=== PATIENT | female | born 1965 | race Caucasian/White ===

== ENCOUNTER 2016-11-15 22:14 | Emergency (ER) | payer SELFPAY ==
[~2016-11-15] VITALS: Ht 165.1 cm; Wt 93.1 kg
[2016-11-15 22:20] VITALS: BP 183/105; PULSE 87; RESP 12; TEMP 98; O2SAT 98
--- NOTE | 2016-11-15 22:49 | PD ---
HPI Chief Complaint: Musculoskeletal Complaint Time Seen by Provider: 10:35 Travel History International Travel<30 days: No Contact w/Intl Traveler<30days: No Traveled to known affect area: No History of Present Illness HPI 51-year-old female presents to the emergency department for evaluation of left lower extremity pain and swelling. She reports the swelling and pain have been present for approximately one month but had significantly worsened over the last few days. She denies injury or trauma to the extremity. She denies any previous blood clot, recent surgery, immobilization, hormone therapy. She describes the pain as aching/throbbing, worse with dorsiflexion, and unrelieved by elevation of the leg. She denies any other medical complaint. COUNT INCLUDES THE [facility] Past Medical History Depression: Yes (TREATED YEARS AGO IN [facility]) Diminished Hearing: No Musculoskeletal: Yes (HERNIATED L4/L5) Tetanus Vaccination: Unknown Influenza Vaccination: No ?: Not Para: 1 Miscarriage: 1 Ovarian Cysts: Yes Past Surgical History Cholecystectomy: Yes Thoracic Surgery: Yes Social History Alcohol Use: No Tobacco Use: Yes (/ PPD) Substance Use: No (denies) Allergies-Medications (Allergen,Severity, Reaction): Coded Allergies: No Known Allergies (Verified , 04/05/16) Reported Meds & Prescriptions Reported Meds & Active Scripts Active No Active Prescriptions or Reported Medications Review of Systems Except as stated in HPI: all other systems reviewed are Neg Physical Exam Narrative GENERAL: [-Alert, well-nourished female in no acute distress] SKIN: Focused skin assessment warm/dry. No wounds, rashes or cellulitis. HEAD: Atraumatic. Normocephalic. EYES: Pupils equal and round. No scleral icterus. No injection or drainage. NECK: Trachea midline. No JVD. CARDIOVASCULAR: Regular rate and rhythm. No murmur appreciated. RESPIRATORY: No accessory muscle use. Clear to auscultation. Breath sounds equal bilaterally. GASTROINTESTINAL: Abdomen soft, non-tender, nondistended. Hepatic and splenic margins not palpable. MUSCULOSKELETAL: No obvious deformities. No clubbing. No cyanosis. Left lower extremity swelling from the calf extending to the ankle and foot. Tenderness across the posterior portion of the calf and posterior knee. Positive Homans sign. 2+ distal pulses present. NEUROLOGICAL: Awake and alert. No obvious cranial nerve deficits. Motor grossly within normal limits. Normal speech. PSYCHIATRIC: Appropriate mood and affect; insight and judgment normal. Data Data Last Documented VS Vital Signs Date Time Temp Pulse Resp B/P Pulse Ox O2 Delivery O2 Flow Rate FiO2 11/15/16 22:20 98.0 87 12 183/105 98 MDM Medical Decision Making Medical Screen Exam Complete: Yes Emergency Medical Condition: Yes Differential Diagnosis DVT, peripheral edema, unspecified leg pain Narrative Course 51-year-old female presents to the emergency department for evaluation of left lower extremity pain and swelling for 1 month. She reports the pain and swelling have increased in severity of the last several days prompting her visit today. She denies any significant past medical history. Not currently on any medications. Has no prior history of DVT. No evidence of trauma or infection. On exam the left lower extremity is mildly swollen she is tender in the posterior aspect of the calf and posterior knee. She has a positive Homans sign. Doppler ultrasound of left lower extremity relative DVT pending. Attending Dr. Dunbar will follow patient at this time. Scripts No Active Prescriptions or Reported Meds Naomi Love November 15, 2016 22:49
--- NOTE | 2016-11-15 23:23 | RADHPO ---
EXAM DATE/TIME: 11/15/2016 23:09 [facility] COMPARISON: No previous studies available for comparison. INDICATIONS : Left leg pain. MEDICAL HISTORY : Left leg pain. SURGICAL HISTORY : Cholecystectomy. ENCOUNTER: Initial ACUITY: 1 month PAIN SCORE: 5/10 LOCATION: Left leg. TECHNIQUE: Venous ultrasound of the leg was performed from the inguinal ligament to the proximal calf. Real-jaya e, color Doppler and spectral tracing, compression and augmentation techniques were used. FINDINGS: There is normal compressibility of the deep venous system from the inguinal region to the proximal ca lf. No echogenic clot is seen in the lumen of the common femoral, femoral, popliteal, and posterior tibial veins. There is a normal response of the venous system to proximal and distal augmentation an d respiration. CONCLUSION: Normal examination. Christopher Wang MD on November 15, 2016 at 23:21 Board Certified Radiologist. This report was verified electronically.
[2016-11-15 23:36] LABS: BASOPHIL % 0.3 % (0.0-2.0); EOSINOPHIL # 0.2 TH/MM3 (0-0.4); EOSINOPHIL % 1.5 % (0.0-4.0); HEMATOCRIT 36.8 % (35.0-46.0); HEMO FLAGS DIFF FINAL; LYMPHOCYTE # 2.4 TH/MM3 (1.0-4.8); MEAN CELL VOLUME 83.9 FL (80.0-100.0); MEAN CORPUSCULAR HEMOGLOBIN 27.9 PG (27.0-34.0); MEAN CORPUSCULAR HGB CONC 33.2 % (32.0-36.0); MONO % 5.8 % (0.0-8.0); NEUT % 74.4 % (16.0-70.0); PLATELET COUNT 408 TH/MM3 (150-450); RED BLOOD COUNT 4.39 MIL/MM3 (4.00-5.30); WHITE BLOOD COUNT 13.4 TH/MM3 (4.0-11.0)
--- NOTE | 2016-11-15 23:43 | PD ---
Physical Exam Date Seen by Provider: November 15, 2016 Time Seen by Provider: 23:39 Narrative This 51-year-old female has been having some pain in the back of her left leg for several weeks. It seems to be getting more severe. She feels like is a lump behind her left knee though it is not there all the time. The pain does keep her awake at times. She is taking ibuprofen without much response. There is no history of trauma. An ultrasound has been ordered and has been read as negative. White count is 13,000 with a normal differential Data Data Last Documented VS Vital Signs Date Time Temp Pulse Resp B/P Pulse Ox O2 Delivery O2 Flow Rate FiO2 11/15/16 22:20 98.0 87 12 183/105 98 Orders Us Leg Venous Doppler (11/15/16 ) Complete Blood Count With Diff (11/15/16 23:06) Basic Metabolic Panel (Bmp) (11/15/16 23:06) Labs Laboratory Tests Test 11/15/16 23:25 White Blood Count 13.4 TH/MM3 Red Blood Count 4.39 MIL/MM3 Hemoglobin 12.2 GM/DL Hematocrit 36.8 % Mean Corpuscular Volume 83.9 FL Mean Corpuscular Hemoglobin 27.9 PG Mean Corpuscular Hemoglobin 33.2 % Concent Red Cell Distribution Width 13.0 % Platelet Count 408 TH/MM3 Mean Platelet Volume 8.1 FL Neutrophils (%) (Auto) 74.4 % Lymphocytes (%) (Auto) 18.0 % Monocytes (%) (Auto) 5.8 % Eosinophils (%) (Auto) 1.5 % Basophils (%) (Auto) 0.3 % Neutrophils # (Auto) 10.0 TH/MM3 Lymphocytes # (Auto) 2.4 TH/MM3 Monocytes # (Auto) 0.8 TH/MM3 Eosinophils # (Auto) 0.2 TH/MM3 Basophils # (Auto) 0.0 TH/MM3 CBC Comment DIFF FINAL Differential Comment Sodium Level 140 MEQ/L Potassium Level 3.5 MEQ/L Chloride Level 106 MEQ/L Carbon Dioxide Level 27.9 MEQ/L Anion Gap 6 MEQ/L Blood Urea Nitrogen 10 MG/DL Creatinine 0.55 MG/DL Estimat Glomerular Filtration 117 ML/MIN Rate Random Glucose 94 MG/DL Calcium Level 8.8 MG/DL [facility] Medical Record Reviewed: Yes Supervised Visit with NIKOLAI: No Differential Diagnosis Differential includes DVT, arthritis, Shah cyst Narrative Course Ultrasound is negative for DVT and a Shah cyst is not diagnosed. Patient does say that she feels a lump behind her knee which seems to come and go I recommended that she follow up with her Shah cyst. I will prescribe a short burst of steroids as the ibuprofen has not been helping Diagnosis Primary Impression: Edema of left foot Scripts Methylprednisolone Dosepak (Medrol Dosepak)4 Mg Dspk4 Mg PO DIRECTED #1 DSPK Ref 0 Per Pharmacist direction Prov:Alfred Miranda MD 11/15/16 Disposition: DISCHARGE HOME Condition: Stable Alfred Miranda MD November 15, 2016 23:43
[2016-11-15 23:45] LABS: POTASSIUM 3.5 MEQ/L (3.5-5.1)
[2016-11-15 23:50] LABS: BICARBONATE 27.9 MEQ/L (21.0-32.0)
[2016-11-15] MEDS ORDERED: MEDR4PAK PO (23:57)
[2016-11-16] MEDS ORDERED: predniSONE 20 MG TAB PO ONE
[2016-11-16 00:13] VITALS: BP 165/98
== END 2016-11-16 00:14 | disposition home or self-care (01) ==
LOC: PHEFT 22:14
DX: R60.9 Edema, unspecified (principal); F32.9 Major depressive disorder, single episode, unspecified; F17.200 Nicotine dependence, unspecified, uncomplicated
CPT/HCPCS: 80048; 85025; 93971; 99284; J7512

== ENCOUNTER 2017-03-27 17:13 | Emergency (ER) | payer SELFPAY ==
[~2017-03-27 17:13] MED LIST: MEDR4PAK PO
[2017-03-27 17:20] VITALS: BP 166/97; PULSE 86; RESP 20; TEMP 93.3; TEMP 98.3; O2SAT 99
[2017-03-27] MEDS ORDERED: SODIUM CHLORIDE 0.9% FLUSH 10 ML FLUSH IVF PRN (17:45)
--- NOTE | 2017-03-27 17:59 | PD ---
HPI Chief Complaint: Musculoskeletal Complaint Time Seen by Provider: 17:34 Travel History International Travel<30 days: No Contact w/Intl Traveler<30days: No Traveled to known affect area: No History of Present Illness HPI 52-year-old female presents to the emergency room for evaluation of generalized weakness and myalgias for the past several months. Myalgias are in upper and lower extremities and worse after long periods of rest. Patient states when she wakes up in the morning she often cries because it is difficult to get out of bed. She has been "eating ibuprofen like candy." She also has left leg and posterior knee pain that started 7 months ago but has been increasingly worsening over the past month. No chronic medical conditions or daily medications. Patient has not seen a primary care physician in many years. She denies any fever, chills, nausea, vomiting, recent illness, chest pain, shortness breath, palpitations, back pain, abdominal pain, recent travel, hematemesis, hematochezia. She has not had a period in several years. No family history of autoimmune disease. Patient states she was in the emergency room several months ago and given prescription for prednisone which made her feel better for a few months. [facility] Past Medical History Depression: Yes (TREATED YEARS AGO IN [facility]) Diminished Hearing: No Musculoskeletal: Yes (HERNIATED L4/L5) ?: Not Para: 1 Miscarriage: 1 Ovarian Cysts: Yes Past Surgical History Cholecystectomy: Yes Thoracic Surgery: Yes Social History Alcohol Use: No Tobacco Use: Yes (1/2 PPD) Substance Use: No (denies) Allergies-Medications (Allergen,Severity, Reaction): Coded Allergies: No Known Allergies (Verified , 03/27/17) Reported Meds & Prescriptions Reported Meds & Active Scripts Active No Active Prescriptions or Reported Medications Review of Systems Except as stated in HPI: all other systems reviewed are Neg Physical Exam Narrative GENERAL: Well-nourished, well-developed female in no acute distress. Afebrile. Ambulatory. SKIN: Focused skin assessment warm/dry. No erythema or ecchymosis. HEAD: Normocephalic. EYES: No scleral icterus. No injection or drainage. NECK: Supple, trachea midline. No JVD or lymphadenopathy. CARDIOVASCULAR: Regular rate and rhythm without murmurs, gallops, or rubs. RESPIRATORY: Breath sounds equal bilaterally. No accessory muscle use. Scattered rhonchi bilaterally. MUSCULOSKELETAL: No cyanosis. There is a baseball-sized mass to the left posterior knee that is tender to palpation. Patient has full range motion of the knee. Bounding 2+ dorsalis pedis pulses bilaterally. No obvious effusion or edema. BACK: Nontender without obvious deformity. No CVA tenderness. Data Data Last Documented VS Vital Signs Date Time Temp Pulse Resp B/P (MAP) Pulse Ox O2 Delivery O2 Flow Rate FiO2 03/27/17 18:13 96 Room Air 03/27/17 17:20 93.3 86 20 166/97 (120) Orders Orders Complete Blood Count With Diff (03/27/17 17:45) Comprehensive Metabolic Panel (03/27/17 17:45) Ecg Monitoring (03/27/17 17:45) Iv Access Insert/Monitor (03/27/17 17:45) Oximetry (03/27/17 17:45) Sodium Chloride 0.9% Flush (Ns Flush) (03/27/17 17:45) Creatine Kinase (Cpk) (03/27/17 17:45) Thyroid Stimulating Hormone (03/27/17 17:45) Labs Laboratory Tests Test 03/27/17 18:00 White Blood Count 11.6 TH/MM3 Red Blood Count 4.39 MIL/MM3 Hemoglobin 11.9 GM/DL Hematocrit 35.8 % Mean Corpuscular Volume 81.7 FL Mean Corpuscular Hemoglobin 27.2 PG Mean Corpuscular Hemoglobin Concent 33.3 % Red Cell Distribution Width 12.3 % Platelet Count 491 TH/MM3 Mean Platelet Volume 8.1 FL Neutrophils (%) (Auto) 66.5 % Lymphocytes (%) (Auto) 22.3 % Monocytes (%) (Auto) 7.6 % Eosinophils (%) (Auto) 3.1 % Basophils (%) (Auto) 0.5 % Neutrophils # (Auto) 7.6 TH/MM3 Lymphocytes # (Auto) 2.6 TH/MM3 Monocytes # (Auto) 0.9 TH/MM3 Eosinophils # (Auto) 0.4 TH/MM3 Basophils # (Auto) 0.1 TH/MM3 CBC Comment DIFF FINAL Differential Comment Blood Urea Nitrogen 13 MG/DL Creatinine 0.45 MG/DL Random Glucose 89 MG/DL Total Protein 8.2 GM/DL Albumin 3.2 GM/DL Calcium Level 8.4 MG/DL Alkaline Phosphatase 114 U/L Aspartate Amino Transf (AST/SGOT) 12 U/L Alanine Aminotransferase (ALT/SGPT) 18 U/L Total Bilirubin 0.2 MG/DL Sodium Level 137 MEQ/L Potassium Level 3.4 MEQ/L Chloride Level 104 MEQ/L Carbon Dioxide Level 26.5 MEQ/L Anion Gap 7 MEQ/L Estimat Glomerular Filtration Rate 146 ML/MIN Total Creatine Kinase 84 U/L Thyroid Stimulating Hormone 3rd Gen 0.790 uIU/ML MDM Medical Decision Making Medical Screen Exam Complete: Yes Emergency Medical Condition: Yes Medical Record Reviewed: Yes Differential Diagnosis Hypothyroidism, anemia, autoimmune disease, myalgia, fibromyalgia Narrative Course 52-year-old female presents to the emergency room for evaluation of general weakness and myalgias for the past several months that has been worsening over the past several weeks. She is not on any medications. Myalgias are in upper and lower extremities and worse after long periods of rest. Patient denies any chest pain, shortness of breath, palpitations, recent illness. Vital signs stable. Physical exam unremarkable. Patient is well-appearing, ambulatory, in no acute distress. IV access established and basic labs obtained. CBC and CMP are essentially unremarkable. TSH is within normal limits. CK is not elevated. Patient may have chronic myalgias due to autoimmune disease or somatization. She was told to follow-up with her primary care physician for outpatient workup of autoimmune diseases symptoms persist or return for worsening symptoms. No indications for admission. Patient is stable for discharge. She understands and agrees to plan. Diagnosis Primary Impression: Myalgia Referrals: [facility] Additional Instructions: Rest and drink plenty of fluids. Follow-up with a primary care physician. Return to the emergency room for worsening symptoms. Scripts No Active Prescriptions or Reported Meds Disposition: DISCHARGE HOME Condition: Stable Lexi Patel Mar 27, 2017 17:59
[2017-03-27 18:13] VITALS: O2SAT 96
[2017-03-27 18:26] LABS: AUTOMATED NEUTROPHIL # 7.6 TH/MM3 (1.8-7.7); BASOPHIL # 0.1 TH/MM3 (0-0.2); BASOPHIL % 0.5 % (0.0-2.0); EOSINOPHIL # 0.4 TH/MM3 (0-0.4); EOSINOPHIL % 3.1 % (0.0-4.0); HEMATOCRIT 35.8 % (35.0-46.0); HEMO FLAGS DIFF FINAL; LYMPH % 22.3 % (9.0-44.0); LYMPHOCYTE # 2.6 TH/MM3 (1.0-4.8); MEAN CELL VOLUME 81.7 FL (80.0-100.0); MEAN CORPUSCULAR HEMOGLOBIN 27.2 PG (27.0-34.0); MEAN CORPUSCULAR HGB CONC 33.3 % (32.0-36.0); MONO % 7.6 % (0.0-8.0); NEUT % 66.5 % (16.0-70.0); PLATELET COUNT 491 TH/MM3 (150-450); RED BLOOD COUNT 4.39 MIL/MM3 (4.00-5.30); RED CELL DISTRIBUTION WIDTH 12.3 % (11.6-17.2); WHITE BLOOD COUNT 11.6 TH/MM3 (4.0-11.0)
[2017-03-27 18:34] LABS: CHLORIDE 104 MEQ/L (98-107); POTASSIUM 3.4 MEQ/L (3.5-5.1); SODIUM (NA) 137 MEQ/L (136-145)
[2017-03-27 18:37] LABS: ANION GAP 7 MEQ/L (5-15); BICARBONATE 26.5 MEQ/L (21.0-32.0)
[2017-03-27 18:38] LABS: BLOOD UREA NITROGEN 13 MG/DL (7-18)
[2017-03-27 18:40] LABS: ALT (GPT) 18 U/L (10-53); AST (GOT) 12 U/L (15-37)
[2017-03-27 18:41] LABS: GLOMERULAR FILTRATION RATE 146 ML/MIN (>89)
[2017-03-27 18:43] LABS: ALKALINE PHOSPHATASE 114 U/L (45-117)
[2017-03-27 18:48] LABS: TOTAL BILIRUBIN ADULT 0.2 MG/DL (0.2-1.0)
[2017-03-27 18:51] LABS: CREATINE KINASE 84 U/L (26-192)
[2017-03-27 19:33] VITALS: BP 142/104
== END 2017-03-27 19:37 | disposition home or self-care (01) ==
LOC: PHED 17:13
DX: M79.1 Myalgia (principal); R53.1 Weakness; M79.605 Pain in left leg; F17.200 Nicotine dependence, unspecified, uncomplicated; Z86.59 Personal history of other mental and behavioral disorders; Z87.39 Personal history of other diseases of the musculoskeletal system and connective tissue; Z87.42 Personal history of other diseases of the female genital tract
CPT/HCPCS: 80053; 82550; 84443; 85025; 99283

== ENCOUNTER 2017-04-06 23:53 | Emergency (ER) | payer SELFPAY ==
[~2017-04-06] VITALS: Ht 165.1 cm; Wt 92.8 kg
[2017-04-06 23:56] VITALS: BP 145/92; PULSE 99; RESP 14; TEMP 97.8; O2SAT 100
[2017-04-07] MEDS ORDERED: LISI10TA3 PO (00:03)
[2017-04-07] MEDS ORDERED: DICL25 PO (00:03)
--- NOTE | 2017-04-07 00:42 | PD ---
HPI Chief Complaint: Edema Time Seen by Provider: 00:39 Travel History International Travel<30 days: No Contact w/Intl Traveler<30days: No Traveled to known affect area: No History of Present Illness HPI The patient is a 52-year-old female that complains of right leg swelling for 2 days. She has not had any recent trauma to the leg, does not have a history of cancer of any type, has not been on any prolonged immobilization or long trips. She works as a waiter/waitress buffet standing up all day. She does not have a history of DVT in the past. She denies any fever, shortness of breath, syncopal or near syncopal spells, chest pain, tachycardia or hemoptysis. PFSH Past Medical History Arthritis: Yes Depression: Yes (TREATED YEARS AGO IN [facility]) Diminished Hearing: No Hypertension: Yes Musculoskeletal: Yes (HERNIATED L4/L5) Tetanus Vaccination: Unknown Influenza Vaccination: No ?: Not Menopausal: Yes : 1 Para: 1 Miscarriage: 1 Ovarian Cysts: Yes (OOFRECTOMY) Past Surgical History Cholecystectomy: Yes Hysterectomy: Yes (PARTIAL ) Thoracic Surgery: Yes Social History Alcohol Use: Yes (VERY RARE) Tobacco Use: Yes (1/2 PPD) Substance Use: No (denies) Allergies-Medications (Allergen,Severity, Reaction): Coded Allergies: No Known Allergies (Verified , 04/07/17) Reported Meds & Prescriptions Reported Meds & Active Scripts Active Reported Diclofenac Sodium DR (Diclofenac Sodium) 25 Mg Tabdr 25 Mg PO BID Lisinopril 10 Mg Tab 10 Mg PO DAILY Review of Systems Except as stated in HPI: all other systems reviewed are Neg Physical Exam Narrative GENERAL: The patient is alert, oriented 3 in slight apparent distress with her right lower leg discomfort. Her vital signs show blood pressure 145/92 and heart rate of 99 but otherwise normal. SKIN: Focused skin assessment warm/dry. HEAD: Atraumatic. Normocephalic. EYES: Pupils equal and round. No scleral icterus. No injection or drainage. ENT: No nasal bleeding or discharge. Mucous membranes pink and moist. NECK: Trachea midline. No JVD. CARDIOVASCULAR: Regular rate and rhythm. No murmur appreciated. RESPIRATORY: No accessory muscle use. Clear to auscultation. Breath sounds equal bilaterally. GASTROINTESTINAL: Abdomen soft, non-tender, nondistended. Hepatic and splenic margins not palpable. MUSCULOSKELETAL: No obvious deformities. No clubbing. No cyanosis. No edema. There is obvious swelling of the right lower leg as compared to the left and there is calf vein tenderness present. Homans sign is positive. There is some slight discomfort on the medial upper leg to direct palpation. NEUROLOGICAL: Awake and alert. No obvious cranial nerve deficits. Motor grossly within normal limits. Normal speech. PSYCHIATRIC: Appropriate mood and affect; insight and judgment normal. Data Data Last Documented VS Vital Signs Date Time Temp Pulse Resp B/P (MAP) Pulse Ox O2 Delivery O2 Flow Rate FiO2 04/07/17 00:11 91 14 99 Room Air 04/06/17 23:56 97.8 145/92 (109) Orders Orders Complete Blood Count With Diff (04/07/17 00:43) Comprehensive Metabolic Panel (04/07/17 00:43) Prothrombin Time / Inr (Pt) (04/07/17 00:43) Act Partial Throm Time (Ptt) (04/07/17 00:43) Urinalysis - C+S If Indicated (04/07/17 00:43) Us Leg Venous Doppler (04/07/17 00:43) Urine Culture (04/07/17 00:55) Labs Laboratory Tests Test 04/07/17 00:55 04/07/17 01:05 Urine Collection Type VOIDED Urine Color STRAW Urine Turbidity CLEAR Urine pH 6.0 Urine Specific [place] 1.017 Urine Protein NEG mg/dL Urine Glucose (UA) NEG mg/dL Urine Ketones NEG mg/dL Urine Occult Blood NEG Urine Nitrite NEG Urine Bilirubin NEG Urine Leukocyte Esterase NEG Urine WBC 3-5 /hpf Urine WBC Clumps OCC Urine Squamous Epithelial Cells 3-5 /hpf Urine Bacteria RARE /hpf Urine Hyaline Casts 0-1 /lpf Urine White Blood Cell Casts 0-1 /lpf Microscopic Urinalysis Comment CULTURE INDICATED White Blood Count 12.6 TH/MM3 Red Blood Count 4.44 MIL/MM3 Hemoglobin 12.1 GM/DL Hematocrit 36.5 % Mean Corpuscular Volume 82.4 FL Mean Corpuscular Hemoglobin 27.2 PG Mean Corpuscular Hemoglobin Concent 33.0 % Red Cell Distribution Width 12.5 % Platelet Count 551 TH/MM3 Mean Platelet Volume 8.2 FL Neutrophils (%) (Auto) 73.3 % Lymphocytes (%) (Auto) 18.8 % Monocytes (%) (Auto) 4.2 % Eosinophils (%) (Auto) 3.1 % Basophils (%) (Auto) 0.6 % Neutrophils # (Auto) 9.2 TH/MM3 Lymphocytes # (Auto) 2.4 TH/MM3 Monocytes # (Auto) 0.5 TH/MM3 Eosinophils # (Auto) 0.4 TH/MM3 Basophils # (Auto) 0.1 TH/MM3 CBC Comment DIFF FINAL Differential Comment Prothrombin Time 10.7 SEC Prothromb Time International Ratio 1.0 RATIO Activated Partial Thromboplast Time 29.8 SEC Blood Urea Nitrogen 23 MG/DL Creatinine 0.69 MG/DL Random Glucose 87 MG/DL Total Protein 9.3 GM/DL Albumin 3.3 GM/DL Calcium Level 9.4 MG/DL Alkaline Phosphatase 122 U/L Aspartate Amino Transf (AST/SGOT) 22 U/L Alanine Aminotransferase (ALT/SGPT) 24 U/L Total Bilirubin 0.2 MG/DL Sodium Level 135 MEQ/L Potassium Level 3.6 MEQ/L Chloride Level 98 MEQ/L Carbon Dioxide Level 26.6 MEQ/L Anion Gap 10 MEQ/L [facility] Medical Decision Making Medical Screen Exam Complete: Yes Emergency Medical Condition: Yes Medical Record Reviewed: Yes Interpretation(s) The ultrasound shows a 6 cm Shah cyst. It does not show any DVT. Differential Diagnosis DVT, cellulitis, lymphadenitis, lymph duct blockage, Shah cyst Narrative Course The patient has a Shah cyst. She needs to elevate her leg and follow up with her primary care physician. She is given Motrin, 600 mg 3 times daily. Diagnosis Primary Impression: Shah's cyst of knee Additional Instructions: Rest and elevation are the treatment. Also Motrin 600 mg 3 times daily is useful. Follow-up with your primary care physician next week. Med/Other Pt SpecificInfo: Prescription(s) given Scripts Ibuprofen (Ibuprofen) 600 Mg Tab 600 MG PO TID, #33 TAB 0 Refills Prov: Jose Juan Weldon MD 04/07/17 Disposition: 01 DISCHARGE HOME Condition: Stable Jose Juan Weldon MD Apr 07, 2017 00:42
[2017-04-07 01:26] LABS: BLOOD, URINE NEG (NEG); GLUCOSE,URINE NEG (NEG); KETONE, URINE NEG (NEG); NITRITE,URINE NEG (NEG)
[2017-04-07 01:27] LABS: AUTOMATED NEUTROPHIL # 9.2 TH/MM3 (1.8-7.7); BASOPHIL # 0.1 TH/MM3 (0-0.2); BASOPHIL % 0.6 % (0.0-2.0); EOSINOPHIL # 0.4 TH/MM3 (0-0.4); EOSINOPHIL % 3.1 % (0.0-4.0); HEMATOCRIT 36.5 % (35.0-46.0); LYMPH % 18.8 % (9.0-44.0); LYMPHOCYTE # 2.4 TH/MM3 (1.0-4.8); MEAN CELL VOLUME 82.4 FL (80.0-100.0); MEAN CORPUSCULAR HEMOGLOBIN 27.2 PG (27.0-34.0); MONO % 4.2 % (0.0-8.0); NEUT % 73.3 % (16.0-70.0); PLATELET COUNT 551 TH/MM3 (150-450); RED BLOOD COUNT 4.44 MIL/MM3 (4.00-5.30); RED CELL DISTRIBUTION WIDTH 12.5 % (11.6-17.2); WHITE BLOOD COUNT 12.6 TH/MM3 (4.0-11.0)
[2017-04-07 01:30] LABS: HEMO FLAGS DIFF FINAL
[2017-04-07 01:33] LABS: METHOD OF COLLECTION VOIDED; URINE COLOR STRAW (YELLW/STRAW)
[2017-04-07 01:35] LABS: CHLORIDE 98 MEQ/L (98-107); POTASSIUM 3.6 MEQ/L (3.5-5.1); SODIUM (NA) 135 MEQ/L (136-145)
[2017-04-07 01:36] LABS: HYALINE CAST, URINE 0-1 /lpf (RARE); WHITE BLOOD CELL CAST, URINE 0-1 /lpf
[2017-04-07 01:37] LABS: BACTERIA, URINE RARE /hpf; COMMENT (UR) CULTURE INDICATED; CULTURE IF INDICATED CULTURE INDICATED
[2017-04-07 01:39] LABS: ANION GAP 10 MEQ/L (5-15); BICARBONATE 26.6 MEQ/L (21.0-32.0); BLOOD UREA NITROGEN 23 MG/DL (7-18)
[2017-04-07 01:41] LABS: APTT (PATIENT) 29.8 SEC (24.3-30.1); PROTHROMBIN TIME - PATIENT 10.7 SEC (9.8-11.6)
[2017-04-07 01:42] LABS: ALT (GPT) 24 U/L (10-53); AST (GOT) 22 U/L (15-37); GLOMERULAR FILTRATION RATE 89 ML/MIN (>89)
[2017-04-07 01:44] LABS: TOTAL BILIRUBIN ADULT 0.2 MG/DL (0.2-1.0)
[2017-04-07 01:45] LABS: ALKALINE PHOSPHATASE 122 U/L (45-117)
--- NOTE | 2017-04-07 02:36 | RADRPT ---
EXAM DATE/TIME: 04/07/2017 07:20 [facility] COMPARISON: No previous studies available for comparison. INDICATIONS : Right leg swelling. MEDICAL HISTORY : Hypertension. SURGICAL HISTORY : Cholecystectomy. Oopherectomy. Partial hysterectomy. ENCOUNTER: Subsequent ACUITY: 2 day PAIN SCORE: 4/10 LOCATION: Right leg. TECHNIQUE: Venous ultrasound of the leg was performed from the inguinal ligament to the proximal calf. Real-jaya e, color Doppler and spectral tracing, compression and augmentation techniques were used. FINDINGS: There is normal compressibility of the deep venous system from the inguinal region to the proximal ca lf. No echogenic clot is seen in the lumen of the common femoral, femoral, popliteal, and posterior tibial veins. There is a normal response of the venous system to proximal and distal augmentation an d respiration. There is a 6 CM complex mass in the popliteal fossa likely reflecting Shah's cyst CONCLUSION: 1. No evidence of deep venous thrombosis. 2. Shah's cyst popliteal fossa Ravindra Burgess MD on April 07, 2017 at 2:33 Board Certified Radiologist. This report was verified electronically.
[2017-04-07 02:45] VITALS: BP 136/85; PULSE 86; RESP 14; O2SAT 98
[2017-04-07] MEDS ORDERED: IBUP-232 PO (02:45)
[2017-04-07] MEDS ORDERED: KETOROLAC TROMETHAMINE 60 MG/2 ML (IM) VIAL IVP ONE (03:00)
[2017-04-07] MEDS ORDERED: KETOROLAC TROMETHAMINE 60 MG/2 ML (IM) VIAL IM ONE (03:00)
== END 2017-04-07 03:07 | disposition home or self-care (01) ==
LOC: PHED 23:53
DX: M71.21 Synovial cyst of popliteal space [Baker], right knee (principal); I10 Essential (primary) hypertension; F17.200 Nicotine dependence, unspecified, uncomplicated; R82.71 Bacteriuria
CPT/HCPCS: 80053; 81001; 85025; 85610; 85730; 87086; 93971; 96372; 99285; J1885

== ENCOUNTER 2017-05-02 16:30 | Emergency (ER) | payer SELFPAY ==
[~2017-05-02] VITALS: Ht 165.1 cm; Wt 91.0 kg
[~2017-05-02 16:30] MED LIST changes: +DICL25 PO; +IBUP-232 PO; +LISI10TA3 PO; -MEDR4PAK PO
[2017-05-02 16:33] VITALS: BP 146/85; PULSE 86; RESP 15; TEMP 97.7; O2SAT 97
--- NOTE | 2017-05-02 16:58 | PD ---
HPI Chief Complaint: Skin Problem Time Seen by Provider: 16:48 Travel History International Travel<30 days: No Contact w/Intl Traveler<30days: No Traveled to known affect area: No History of Present Illness HPI 52-year-old female here for evaluation of painful area of skin on the medial proximal left toe. She first noticed it 3-4 weeks ago, worsened which prompted evaluation. 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 She was prescribed antibiotics last week at an urgent care center and symptoms have persisted. No other complaints. PFSH Past Medical History Arthritis: Yes Depression: Yes (TREATED YEARS AGO IN [facility]) Diminished Hearing: No Hypertension: Yes Musculoskeletal: Yes (HERNIATED L4/L5) Menopausal: Yes : 1 Para: 1 Miscarriage: 1 Ovarian Cysts: Yes (OOFRECTOMY) Past Surgical History Cholecystectomy: Yes Hysterectomy: Yes (PARTIAL ) Thoracic Surgery: Yes Social History Alcohol Use: Yes (VERY RARE) Tobacco Use: Yes (1/2 PPD) Substance Use: No (denies) Allergies-Medications (Allergen,Severity, Reaction): Coded Allergies: No Known Allergies (Verified Adverse Reaction, Unknown, 05/02/17) Reported Meds & Prescriptions Reported Meds & Active Scripts Active Bactroban Topical (Mupirocin) 22 Gm Cream 1 Applic TOPICAL BID 14 Days Reported Lisinopril 10 Mg Tab 10 Mg PO DAILY Review of Systems Except as stated in HPI: all other systems reviewed are Neg Physical Exam Narrative GENERAL: Well-developed well-nourished female in no acute distress SKIN: Warm and dry. Excoriated callus noted to the medial proximal left first toe. No fluctuance. There is little bit of serous drainage. No purulent drainage. CARDIOVASCULAR: Regular rate and rhythm. No murmur appreciated. RESPIRATORY: No accessory muscle use. Clear to auscultation. Breath sounds equal bilaterally. MUSCULOSKELETAL: Skin as noted above no obvious bony deformity. Distal sensation is intact. 2+ dorsalis pedis pulse. Data Data Last Documented VS Vital Signs Date Time Temp Pulse Resp B/P (MAP) Pulse Ox O2 Delivery O2 Flow Rate FiO2 05/02/17 16:33 97.7 86 15 146/85 (105) 97 Orders Orders Toe (Min 2vws) (05/02/17 ) Tetanus/Diphtheria Tox Adult (Tetanus/Di (05/02/17 17:00) Ed Discharge Order (05/02/17 17:29) [facility] Medical Decision Making Medical Screen Exam Complete: Yes Emergency Medical Condition: Yes Medical Record Reviewed: Yes Differential Diagnosis Excoriated callus, cellulitis, abscess Narrative Course The primary issue here appears to be callous formation to the medial left proximal great toe which has become excoriated and irritated. Ideally this patient would wear footwear there is no rub or irritate her skin. X-ray imaging CONCLUSION: Marked hallux valgus deformity with ulceration and small bunion. This is consistent with examination. The patient will be discharged with a short course of antibiotic ointment. She is stable for discharge. Diagnosis Primary Impression: Bunion of great toe of left foot Additional Instructions: Wash daily with soap and water and apply antibiotic cream daily. Avoid tight fitting footwear that rubs against the skin as this will exacerbate the problem. Follow-up with a acute specialist. Return for any acutely new or worsening symptoms. Med/Other Pt SpecificInfo: Prescription(s) given Scripts Mupirocin Topical (Bactroban Topical) 22 Gm Cream 1 APPLIC TOPICAL BID for Mgmt Bacterial Infection for 14 Days, #1 TUBE 0 Refills Prov: Obey Srinivasan MD 05/02/17 Disposition: 01 DISCHARGE HOME Condition: Stable Cyril Waterman May 02, 2017 16:58
[2017-05-02] MEDS ORDERED: TETANUS/DIPHTHERIA TOXOID ADULT 0.5 ML VIAL IM ONE (17:00)
--- NOTE | 2017-05-02 17:25 | RADRPT ---
EXAM DATE/TIME: 05/02/2017 17:02 [place] COMPARISON: No previous studies available for comparison. INDICATIONS : Left great toe pain. MEDICAL HISTORY : None. SURGICAL HISTORY : None. ENCOUNTER: Initial ACUITY: 2 weeks PAIN SCORE: 6/10 LOCATION: Left great toe FINDINGS: Marked hallux valgus deformity of first second and third toes. Small ulceration is evident. There i s no evidence of fracture. CONCLUSION: Marked hallux valgus deformity with ulceration and small bunion. Corey Topete MD FACR on May 02, 2017 at 17:23 Board Certified Radiologist. This report was verified electronically.
[2017-05-02] MEDS ORDERED: MUPI2%T TOPICAL (17:29)
== END 2017-05-02 17:40 | disposition home or self-care (01) ==
LOC: PHEFT 16:30
DX: M21.612 Bunion of left foot (principal); Z23 Encounter for immunization
CPT/HCPCS: 73660; 90471; 90714

== ENCOUNTER 2017-09-07 14:51 | Emergency (ER) | payer SELFPAY ==
[~2017-09-07] VITALS: Ht 165.1 cm; Wt 88.0 kg
[~2017-09-07 14:51] MED LIST changes: -DICL25 PO; -IBUP-232 PO; +MUPI2%T TOPICAL
[2017-09-07 15:34] VITALS: BP 147/76; PULSE 76; RESP 18; TEMP 97.8; O2SAT 98
--- NOTE | 2017-09-07 16:40 | PD ---
HPI Chief Complaint: Musculoskeletal Complaint Time Seen by Provider: 16:17 Travel History International Travel<30 days: No Contact w/Intl Traveler<30days: No Traveled to known affect area: No History of Present Illness HPI THis is a 52-year-old female here with right sided neck and shoulder pain 2 days. She denies injury or trauma. She reports she has a history of arthritis. Pain is worse with range of motion of the shoulder. Pain is reduced with rest. Denies chest pain, shortness of breath. No paresthesia or weakness of the extremity. PFSH Past Medical History Arthritis: Yes Depression: Yes (TREATED YEARS AGO IN [facility]) Diminished Hearing: No Hypertension: Yes Musculoskeletal: Yes (HERNIATED L4/L5) Menopausal: Yes : 1 Para: 1 Miscarriage: 1 Ovarian Cysts: Yes (OOFRECTOMY) Past Surgical History Cholecystectomy: Yes Hysterectomy: Yes (PARTIAL ) Thoracic Surgery: Yes Social History Alcohol Use: Yes (VERY RARE) Tobacco Use: Yes (1/2 PPD) Substance Use: No (denies) Allergies-Medications (Allergen,Severity, Reaction): Coded Allergies: No Known Allergies (Verified Adverse Reaction, Unknown, 09/07/17) Reported Meds & Prescriptions Reported Meds & Active Scripts Active Bactroban Topical (Mupirocin) 22 Gm Cream 1 Applic TOPICAL BID 14 Days Reported Lisinopril 10 Mg Tab 10 Mg PO DAILY Review of Systems Except as stated in HPI: all other systems reviewed are Neg General / Constitutional: No: Fever Eyes: No: Visual changes HENT: No: Headaches Cardiovascular: No: Chest Pain or Discomfort Respiratory: No: Shortness of Breath Gastrointestinal: No: Abdominal Pain Genitourinary: No: Dysuria Physical Exam Narrative GENERAL: Alert well-appearing 52-year-old female SKIN: Warm and dry. HEAD: Normocephalic. EYES: No injection or drainage. NECK: Supple, trachea midline. No midline spine tenderness. +TTP right trapezius muscle. CARDIOVASCULAR: Regular rate and rhythm no murmur appreciated. RESPIRATORY: Breath sounds equal bilaterally. No accessory muscle use. GASTROINTESTINAL: Abdomen soft, non-tender, nondistended. MUSCULOSKELETAL: No cyanosis, or edema. Right upper extremity: +TTP recent rotator cuff. Positive Neer's test. Reproducible pain with forward extension of the shoulder. 2+ distal pulses. Normal sensation. Brisk cap refill. BACK: Nontender without obvious deformity. No CVA tenderness. Data Data Last Documented VS Vital Signs Date Time Temp Pulse Resp B/P (MAP) Pulse Ox O2 Delivery O2 Flow Rate FiO2 09/07/17 15:34 97.8 76 18 147/76 (99) 98 Orders Orders Ketorolac Inj (Toradol Inj) (09/07/17 16:45) Support Splint (09/07/17 16:31) Ed Discharge Order (09/07/17 16:48) MDM Medical Decision Making Medical Screen Exam Complete: Yes Emergency Medical Condition: Yes Differential Diagnosis Rotator cuff injury, arthritis, cervical radiculopathy Narrative Course This is a 52-year-old female here with right trapezius muscle and shoulder pain 2 days. Pain is reproducible and worse with movement. She be treated for muscle scalp pain. Sling for comfort. Diagnosis Primary Impression: Right shoulder pain Qualified Codes: M25.511 - Pain in right shoulder Referrals: Primary Care Physician Additional Instructions: Medication as directed. Sling for comfort. Ice and/or heat for comfort Avoid heavy lifting or strenuous activity. Return to emergency department if he developed new or worsening symptoms Scripts Methocarbamol (Robaxin) 750 Mg Tab 750 MG PO QID for Muscle Spasm, #12 TAB 0 Refills Prov: Naomi Love 09/07/17 Meloxicam (Meloxicam) 15 Mg Tab 15 MG PO DAILY for Arthritis Pain, #30 TAB 0 Refills Prov: Naomi Love 09/07/17 Disposition: 01 DISCHARGE HOME Condition: Stable Naomi Love Sep 07, 2017 16:40
[2017-09-07] MEDS ORDERED: KETOROLAC TROMETHAMINE 60 MG/2 ML (IM) VIAL IM ONE (16:45)
[2017-09-07] MEDS ORDERED: MELO15TA20 PO (17:32)
[2017-09-07] MEDS ORDERED: ROBA750T PO (17:32)
== END 2017-09-07 17:34 | disposition home or self-care (01) ==
LOC: PHEFT 14:51
DX: M25.511 Pain in right shoulder (principal); M19.90 Unspecified osteoarthritis, unspecified site; I10 Essential (primary) hypertension; F32.9 Major depressive disorder, single episode, unspecified; F17.210 Nicotine dependence, cigarettes, uncomplicated; Z79.899 Other long term (current) drug therapy
CPT/HCPCS: 96372; 99284; J1885